=== PATIENT | female | born 1970 | race Caucasian/White ===

== ENCOUNTER 2019-07-09 17:35 | Inpatient (IN) | payer OTHER ==
[~2019-07-09] VITALS: Ht 167.6 cm; Wt 89.8 kg
[2019-07-09 17:38] VITALS: BP 146/82
--- NOTE | 2019-07-09 17:53 | NUR ---
DR PEDRO LUIS RESTREPO PT AT TRIAGE.
--- NOTE | 2019-07-09 18:00 | NUR ---
PT AMB TO BED 8
--- NOTE | 2019-07-09 18:05 | NUR ---
PT C/O LEFT FACIAL DROOPING, NUMBNESS, TINGLING FOR WITH LEFT UPPER & LEFT LOWER EXTREMITIES NUMBNESS FOR 3 DAYS. WENT TO THE ER [facility] ON 07/04/[address] SCAN WITH NORMAL FINDINGS. PT ALSO C/O LEFT-SIDED POSTERIOR HEAD PAIN AND POSTERIOR NECK PAIN WITH PRESSURE SENSATION FOR 6 DAYS. PATIENT STATES PAIN OF 6/10 AT THIS TIME; VSS; LEFT EXTREMITIES MILD WEAKNESS 4/5 NOTICED ON STRENGTH TEST. [id number] TEST NORMAL. NORMAL ROMEBERG'S TEST. PATIENT POSITIONED FOR COMFORT; HOB ELEVATED; BEDRAILS UP X1; BED DOWN. ER MD MADE AWARE OF PT STATUS. PT IS ON MONITOR AND SISTER IS AT BEDSIDE.
[2019-07-09 18:54] LABS: BASOPHILS % (AUTO) 0.2 % (0.0-2.0); HEMATOCRIT 39.3 % (36-48); HEMOGLOBIN 12.9 g/dL (12.0-16.0); LYMPHOCYTES # (AUTO) 0.7 K/uL (2.5-16.5); MEAN CORPUSCULAR HEMOGLOBIN 30 pg (27-31); MEAN CORPUSCULAR HGB CONC 33 g/dL (33-37); MONOCYTES # (AUTO) 0.1 K/uL (0.8-1.0); MONOCYTES % (AUTO) 1.7 % (1.7-9.3); NEUTROPHILS # (AUTO) 5.4 K/uL (1.8-7.7); NEUTROPHILS % (AUTO) 87.1 % (42.2-75.2); PLATELET COUNT (AUTO) 252 K/uL (140-450); RED BLOOD CELL COUNT(AUTO) 4.32 MIL/uL (4.20-5.40); RED CELL DISTRIBUTION WIDTH 14.5 % (11.6-13.7); WHITE BLOOD COUNT (AUTO) 6.2 K/uL (4.8-10.8)
[2019-07-09] MEDS ORDERED: ACETAMINOPHEN 325 MG TAB PO PRN (19:05)
[2019-07-09] MEDS ORDERED: ASPIRIN 325 MG TAB PO ONE (19:05)
[2019-07-09] MEDS ORDERED: ONDANSETRON 4 MG/2 ML VIAL IVP PRN (19:05)
[2019-07-09] MEDS ORDERED: LEVO0.124 PO (19:20)
--- NOTE | 2019-07-09 19:29 | NUR ---
Pt report given to JESS Ballesteros. Transfer of care at this time.
--- NOTE | 2019-07-09 19:45 | NUR ---
Patient will be admitted to care of [facility]. Admited to TELE. Will go to room 105 A. Belongings list completed. Report to VIVIANE MERCADO.
[2019-07-09 19:58] LABS: APPEARANCE,URINE CLEAR (CLEAR); BILIRUBIN,URINE NEGATIVE (NEGATIVE); BLOOD, URINE NEGATIVE (NEGATIVE); COLOR,URINE YELLOW (YELLOW); LEUKOCYTE ESTERASE ,URINE TRACE (NEGATIVE); NITRITE, URINE NEGATIVE (NEGATIVE); UGLUCOSE NEGATIVE (NEGATIVE)
[2019-07-09 19:59] LABS: BARBITURATE, URINE NEG. ng/ml (NEG <=200); BENZODIAZEPINE, URINE NEG. ng/mL (NEG <=200); CANNABINOID, URINE NEG. ng/mL (NEG <=50); COCAINE, URINE NEG. ng/mL (NEG <=300); OPIATE, URINE NEG. ng/mL (NEG <=2000); PHENCYCLIDINE SCREEN,URINE NEG. ng/mL (NEG <=25)
[2019-07-09 20:13] LABS: RBC,URINE NONE SEEN /HPF (0-5); WBC,URINE 0-5 /HPF (0-5)
--- NOTE | 2019-07-09 20:40 | NUR ---
Received endorsement from rim fire charger operator Blanca; patient A/Ox4, able to make needs known, Niuean speaking, ambulatory with 1-person assist. Patient is talking with family members; introduced self, updated board. Chief complaint of left sided weakness and numbness, diagnosis is Facial droop. No SOB or distress noted, on room air. IV site noted on right antecubital, 20 gauge, saline locked. Skin intact. Bed in the lowest position, call light within reach. Initial assessment done. Will continue to monitor.
[2019-07-09 20:49] LABS: FREE T4 (FREE THYROXINE) 1.09 ng/dL (0.76-1.46); PHOSPHORUS 3.8 mg/dL (2.5-4.9); THYROID STIMULATING HORMONE 0.17 uIU/mL (0.34-3.74)
[2019-07-09] MEDS: DOCUSATE SODIUM 100 MG GELCAP PO SCH (20:59)
[2019-07-09 21:00] VITALS: BP 150/80
[2019-07-09] MEDS: HYDROcodone/APAP 7.5/325 MG 1 TAB PO PRN (21:00)
[2019-07-09 21:19] LABS: PROTHROMBIN TIME 9.7 secs (10.8-13.4)
--- NOTE | 2019-07-09 21:45 | NUR ---
Due meds given, tolerated well.
[2019-07-09] MEDS ORDERED: POLYVINYL ALCOHOL 1.4% OP 15 ML SOL OP SCH (23:55)
[2019-07-10] VITALS: BP 142/85
--- NOTE | 2019-07-10 00:05 | NUR ---
Vitals taken, no distress noted.
--- NOTE | 2019-07-10 02:30 | NUR ---
Checks made; patient asleep, visible chest rise and fall noted.
[2019-07-10 04:00] VITALS: BP 141/84
--- NOTE | 2019-07-10 04:30 | NUR ---
Vitals taken, no distress noted.
--- NOTE | 2019-07-10 06:00 | NUR ---
Vitals taken, due meds given. Will endorse to AM shift RN for continuity of care.
[2019-07-10] MEDS: LEVOTHYROXINE 0.025 MG TAB PO SCH (06:27)
--- NOTE | 2019-07-10 07:21 | NUR ---
RECEIVED REPORT FROM CHARGING CAR OPERATOR RN. PT IS AAOX4, MONGOLIAN SPEAKING BUT ABLE TO COMMUNICATE IN [place]. AMBULATES WITH 1 PERSON ASSIST. PT DENIES PAIN OR SOB AT THIS TIME. LUNG SOUNDS CLEAR. SKIN IS INTACT. INTRODUCED SELF TO PT AND EXPLAINED POC. PT VERBALIZED UNDERSTANDING. BOARD UPDATED. WILL MONITOR PT CLOSELY THROUGHOUT SHIFT.
[2019-07-10 08:00] VITALS: BP 137/76
--- NOTE | 2019-07-10 08:08 | NUR ---
PATIENT HAS BEEN SCREENED AND CATEGORIZED LOW NUTRITION RISK. PATIENT WILL BE SEEN WITHIN 7 DAYS OF ADMISSION. 07/16/[address]
[2019-07-10] MEDS: HYDROCHLOROTHIAZIDE 25 MG TAB PO SCH (08:43)
[2019-07-10] MEDS: DOCUSATE SODIUM 100 MG GELCAP PO SCH ×2 (08:43→21:20)
[2019-07-10] MEDS: POLYVINYL ALCOHOL 1.4% OP 15 ML SOL OP SCH ×3 (08:44→17:38)
[2019-07-10] MEDS: ECOTRIN 81 MG TABEC PO SCH (08:44)
--- NOTE | 2019-07-10 08:46 | NUR ---
ADMINISTERED MORNING MEDS TO PT. PT TOLERATED THEM WELL. ALL PT NEEDS CURRENTLY MET. WILL CONTINUE TO ROUND FREQUENTLY ON PT. BED IN LOW POSITION, CALL LIGHT WITHIN REACH. FAMILY AT BEDSIDE.
--- NOTE | 2019-07-10 11:47 | NUR ---
PT RESTING IN BED TALKING WITH FAMILY THAT IS AT BEDSIDE. ALL PT NEEDS MET. WILL CONTINUE TO ROUND FREQUENTLY ON PT. BED IN LOW POSITION, CALL LIGHT WITHIN REACH.
[2019-07-10 12:00] VITALS: BP 138/66
[2019-07-10] MEDS: HYDROcodone/APAP 7.5/325 MG 1 TAB PO PRN ×2 (12:08→19:06)
--- NOTE | 2019-07-10 13:27 | NUR ---
CONTACTED [employer] [facility] AT [phone], SPOKE TO ISRAEL, HE STATED THEY ARE DELEGATED TO PROVIDE AUTHORIZATION BUT CALL GOT DISCONNECTED. CONTACTED INSURANCE AGAIN, ABLE TO SPEAK TO MICHAEL, HE PROVIDED ME THE NUMBER FOR [employer]ODUCTION [employer] PPO [phone]. CONTACTED THE PROVIDED NUMBER, NO ANSWER. LEFT A MESSAGE.
--- NOTE | 2019-07-10 13:41 | NUR ---
CONTACTED [facility], NO ANSWER. LEFT MESSAGE
--- NOTE | 2019-07-10 13:57 | NUR ---
PT RESTING IN BED WITH FAMILY AT BEDSIDE. ALL NEEDS MET. WILL CONTINUE TO ROUND FREQUENTLY ON PT.
--- NOTE | 2019-07-10 14:16 | NUR ---
CONTACTED [employer] AGAIN, NO ANSWER. LEFT MESSAGE CONTACTED [employer] AT [phone], ABLE TO SPEAK TO MICHAEL. I TOLD HER THAT IF I CAN CALL ANOTHER PERSON BECAUSE I LEFT [employer] SEVERAL MESSAGES AND HAS NOT RETURNED MY CALL, SHE STATED THERE IS NO ASSIGNED OSTEOPATHIC PHYSICIAN AT THIS TIME AND [employer] IS THE ONE ASSIGNING IT. WILL FOLLOW UP. SPOKE TO LILY OF RADIOLOGY, SHE STATED THAT THEIR AUTO CLEANER WILL ONLY BE HERE UNTIL 1500 AND NOT GOING TO BE BACK UNTIL SATURDAY. DR. CHATTERJEE MADE AWARE.
--- NOTE | 2019-07-10 14:46 | NUR ---
CONTACTED [facility] AT [phone], ABLE TO SPEAK TO CHELSI (RADIOLOGY DEPT). SHE STATED THAT THEIR ASSEMBLER AIRCRAFT [employer]OWER PLANT (PER HIS CALENDAR) IS NOT AVAILABLE UNTIL SATURDAY. SHE ALSO RECOMMENDED TO REFER PATIENT TO [facility]. CHATTERJEE MADE AWARE. CONTACTED [employer] AGAIN, NO ANSWER. LEFT MESSAGE. Addendum: 07/10/19 at 1610 by Jessica Echols 16:09 - Left a voicemail for [facility] to obtain an auth for MRI. Jessica Echols, [facility] [address] Ext [phone]
--- NOTE | 2019-07-10 15:49 | NUR ---
PT RESTING IN BED WITH FAMILY AT BEDSIDE. ALL NEEDS MET. WILL CONTINUE TO ROUND FREQUENTLY ON PT.
[2019-07-10 16:00] VITALS: BP 107/61
--- NOTE | 2019-07-10 17:34 | NUR ---
PT RESTING IN BED. ALL NEEDS MET. WILL CONTINUE TO ROUND FREQUENTLY ON PT. BED IN LOW POSITION, CALL LIGHT WITHIN REACH.
--- NOTE | 2019-07-10 19:34 | NUR ---
ENDORSED PT TO CUSTOM SKI MAKER FOR CONTINUATION OF CARE. PT IN STABLE CONDITION AT THIS TIME.
--- NOTE | 2019-07-10 19:35 | NUR ---
Received endorsement from AM shift RN; patient A/Ox4, able to make needs known, Andorran speaking, ambulatory with 1-person assist. Patient is talking with daughters; introduced self, updated board. No SOB or distress noted, on room air. IV site noted on right antecubital, 20 gauge, saline locked. Skin intact. Bed in the lowest position, call light within reach. Initial assessment done. Will continue to monitor.
[2019-07-10 20:00] VITALS: BP 109/65
--- NOTE | 2019-07-10 20:20 | NUR ---
Vitals taken, no distress noted.
[2019-07-10] MEDS ORDERED: APAP/BUTAL/CAFF 325/50/40 MG 1 TAB PO PRN (20:55)
[2019-07-10] MEDS ORDERED: KETOROLAC 30 MG/ML VIAL IVP SCH (21:30)
--- NOTE | 2019-07-10 21:35 | NUR ---
Due meds given, tolerated well.
--- NOTE | 2019-07-10 23:25 | NUR ---
Vitals taken, no distress noted.
[2019-07-11] VITALS: BP 110/63
--- NOTE | 2019-07-11 01:41 | NUR ---
Rounds done,; patient asleep on right lateral side, visible chest rise and fall noted.
--- NOTE | 2019-07-11 03:30 | NUR ---
Vitals taken, checks made; no distress noted.
[2019-07-11 04:00] VITALS: BP 127/74
[2019-07-11] MEDS: LEVOTHYROXINE 0.025 MG TAB PO SCH (05:32)
--- NOTE | 2019-07-11 06:00 | NUR ---
Vitals stable, due meds given. Will endorse to AM shift RN for continuity of care.
[2019-07-11 06:22] LABS: BASOPHILS # (AUTO) 0.1 K/uL (0.00-0.22); EOSINOPHILS # (AUTO) 0.2 K/uL (0-0.4); EOSINOPHILS % (AUTO) 3.1 % (0.0-4.0); HEMATOCRIT 40.5 % (36-48); HEMOGLOBIN 13.3 g/dL (12.0-16.0); LYMPHOCYTES # (AUTO) 2.6 K/uL (2.5-16.5); LYMPHOCYTES % (AUTO) 44.6 % (20.5-51.1); MEAN CORPUSCULAR HEMOGLOBIN 30 pg (27-31); MEAN CORPUSCULAR HGB CONC 33 g/dL (33-37); MEAN CORPUSCULAR VOLUME 90.8 fL (80-94); MONOCYTES # (AUTO) 0.4 K/uL (0.8-1.0); MONOCYTES % (AUTO) 7.4 % (1.7-9.3); NEUTROPHILS # (AUTO) 2.5 K/uL (1.8-7.7); NEUTROPHILS % (AUTO) 43.9 % (42.2-75.2); PLATELET COUNT (AUTO) 245 K/uL (140-450); RED BLOOD CELL COUNT(AUTO) 4.46 MIL/uL (4.20-5.40); RED CELL DISTRIBUTION WIDTH 14.3 % (11.6-13.7); WHITE BLOOD COUNT (AUTO) 5.7 K/uL (4.8-10.8)
[2019-07-11 06:46] LABS: ANION GAP 10.8 (8-16); CARBON DIOXIDE 27.4 mmol/L (21-32); CREATININE 0.7 mg/dL (0.6-1.3); POTASSIUM 3.2 mmol/L (3.5-5.1)
[2019-07-11 06:55] LABS: MAGNESIUM 2.1 mg/dL (1.8-2.4); PHOSPHORUS 4.5 mg/dL (2.5-4.9)
--- NOTE | 2019-07-11 07:24 | NUR ---
RECEIVED ENDORSEMENT FROM TOBACCO WAREHOUSE AGENT RN. PT IN STABLE CONDITION. WILL CONTINUE CARE FROM YESTERDAY.
[2019-07-11 08:00] VITALS: BP 115/65
--- NOTE | 2019-07-11 08:32 | NUR ---
Offset Lithographic Press Setter Note: MRI follow up: I called [employer] recording states business hours are Saturday-Saturday. I called Heather strategy manager from [employer] , no answer, left message. I called and spoke with Surgical Scheduler Mala from [facility] ext [phone]. Per Mala, she does not think they have is technician available on weekend. She told me she will confirm is technician are not available on weekend and call me back.
[2019-07-11] MEDS: HYDROCHLOROTHIAZIDE 25 MG TAB PO SCH (08:33)
[2019-07-11] MEDS: DOCUSATE SODIUM 100 MG GELCAP PO SCH (08:34)
[2019-07-11] MEDS: ECOTRIN 81 MG TABEC PO SCH (08:34)
[2019-07-11] MEDS: POLYVINYL ALCOHOL 1.4% OP 15 ML SOL OP SCH (08:34)
--- NOTE | 2019-07-11 09:00 | NUR ---
Engraver Tire Mold Note: Per [employer] I Engraver Mala from [facility] ext [phone], they do not have lead technical architect available on weekends, and made aware.
--- NOTE | 2019-07-11 09:24 | NUR ---
ADMINISTERED MORNING MEDS TO PT. ALSO ADMINISTERED MEDICATION FOR MIGRAINE HEADACHE. PT TOLERATED THEM WELL. ALL NEEDS MET. WILL CONTINUE TO ROUND FREQUENTLY ON PT.
--- NOTE | 2019-07-11 11:38 | NUR ---
PT DECIDING TO GO AMA. PT STATES THAT MRI IS TAKING TOO LONG TO BE COMPLETED. MD AWARE. WILL HAVE PT SIGN AMA FORM. ALL NEEDS MET. WILL CONTINUE TO MONITOR CLOSELY.
--- NOTE | 2019-07-11 12:35 | NUR ---
PT LEFT AMA. ALL PERSONAL BELONGINGS TAKEN WITH PT. PT LEFT IN STABLE CONDITION ACCOMPANIED BY FAMILY. PT AWARE OF RISKS OF LEAVING AMA. PT STATED SHE WILL GO TO [facility] TO HAVE TREATMENT RESUMED.
[2019-07-14 06:13] LABS: ANTI-NUCLEAR ANTIBODY TITER Negative (.)
== END 2019-07-11 12:20 | disposition left against medical advice (07) | DRG 74 ==
LOC: MED 17:35 → MTU 19:02
PROVIDERS: ADMIT General Practice; ATTEND General Practice
DX: G90.9 Disorder of the autonomic nervous system, unspecified (principal); G51.0 Bell's palsy; E03.9 Hypothyroidism, unspecified; M32.9 Systemic lupus erythematosus, unspecified; I10 Essential (primary) hypertension; Z53.21 Procedure and treatment not carried out due to patient leaving prior to being seen by health care provider; Z82.49 Family history of ischemic heart disease and other diseases of the circulatory system
CPT/HCPCS: 36415; 80048; 80305; 81001; 81025; 82150; 83036; 83690; 83735; 83880; 84100; 84439; 84443; 84484; 85025; 85610; 85730; 86038; 87081; 93005; 93880; 99285; J1644; J1885; Q0092